=== PATIENT | female | born 1955 | race Caucasian/White ===

== ENCOUNTER 2020-12-30 14:24 | Emergency (ER) | payer OTHER ==
[~2020-12-30] VITALS: Ht 157.5 cm; Wt 68.0 kg
[2020-12-30] MEDS ORDERED: CLINDAMYCIN300 M1 PO (14:50)
[2020-12-30 14:57] VITALS: BP 162/65
== END 2020-12-30 14:59 | disposition home or self-care (01) | DRG 159 ==
LOC: ED 14:24
DX: K08.89 Other specified disorders of teeth and supporting structures (principal); I10 Essential (primary) hypertension

== ENCOUNTER 2021-12-09 09:00 | Emergency (ER) | payer MEDICARE, OTHER ==
[~2021-12-09] VITALS: Ht 157.5 cm; Wt 66.0 kg
[~2021-12-09 09:00] MED LIST: CLINDAMYCIN300 M1 PO
[2021-12-09 09:14] VITALS: BP 188/108
[2021-12-09] MEDS ORDERED: LISINOPRIL2.5 MG PO (09:18)
[2021-12-09] MEDS ORDERED: METOPROL TAR25 MG PO (09:18)
[2021-12-09] MEDS ORDERED: NORVASC2.5 M1 PO (09:18)
[2021-12-09] MEDS ORDERED: PROTONIX20 M1 PO (09:19)
[2021-12-09 11:56] LABS: HEMATOCRIT 50.3 % (37.0-47.0); IMMATURE GRANULOCYTES 0.2 % (0.0-5.0); MEAN CELL VOLUME 92.5 fL CALC (80.0-100.0); MEAN CORPUSCULAR HGB 31.3 pG CALC (26.0-32.0); MEAN CORPUSCULAR HGB CONC 33.8 g/dL CAL (32.0-36.0); NEUT# 6.1 thou/uL (2.00-7.15); RED BLOOD COUNT 5.44 mill/uL (4.20-5.60); RED CELL DISTRI WIDTH 12.9 % (11.5-15.5)
[2021-12-09 12:01] LABS: ALBUMIN 4.3 g/dL (3.2-5.0); ALKALINE PHOSPHATASE 164 u/l (38-126); ANION GAP 13 (6-22 (CALC)); BILIRUBIN, TOTAL 0.8 mg/dL (0.0-1.4); BUN 7 mg/dL (8-23); BUN/CREATININE RATIO 13 (12-20 (CALC)); CARBON DIOXIDE 22 mmol/l (22-30); CHLORIDE 104 mmol/l (95-108); CREATININE 0.5 mg/dL (0.5-1.0); GFR > 60 ML/MIN (>=60 (CALC)); GFR FOR AFR.AMER. > 60 ML/MIN (>=60 (CALC)); POTASSIUM 4.2 mmol/l (3.5-5.1); SGOT/AST 53 u/l (9-36); SODIUM 135 mmol/l (137-146)
[2021-12-09] MEDS ORDERED: ZPAK PO (14:02)
[2021-12-09] MEDS ORDERED: OMNI-PAC300 MG PO (14:02)
[2021-12-09] MEDS ORDERED: PREDNISONE20 MG PO (14:02)
== END 2021-12-09 15:33 | disposition short-term general hospital (02) ==
LOC: ED 09:00
PROVIDERS: Internal Medicine
DX: I21.4 Non-ST elevation (NSTEMI) myocardial infarction (principal); J18.9 Pneumonia, unspecified organism; I10 Essential (primary) hypertension; E78.00 Pure hypercholesterolemia, unspecified; I25.2 Old myocardial infarction; F17.210 Nicotine dependence, cigarettes, uncomplicated; Z95.5 Presence of coronary angioplasty implant and graft
CPT/HCPCS: Q9967

== ENCOUNTER 2022-04-14 17:52 | Observation (INO) | payer MEDICARE, OTHER ==
[~2022-04-14] VITALS: Ht 157.5 cm; Wt 60.0 kg
[2022-04-14] VITALS (71 sets, daily range): BP systolic 61–152; BP diastolic 31–91
[~2022-04-14 17:52] MED LIST changes: +EZETIMIBE10 MG PO; +LISINOPRIL2.5 MG PO; +METOPROL TAR25 MG PO; +NORVASC2.5 M1 PO; +OMNI-PAC300 MG PO; +PREDNISONE20 MG PO; +PROTONIX20 M1 PO; +ZPAK PO
[2022-04-14] MEDS ORDERED: LISINOPRIL10 MG PO (17:59)
[2022-04-14] MEDS ORDERED: ASPIRIN81 MG PO (17:59)
[2022-04-14 18:40] LABS: IMMATURE GRANULOCYTES 0.4 % (0.0-5.0); MEAN CELL VOLUME 89.6 fL CALC (80.0-100.0); MEAN CORPUSCULAR HGB 29.8 pG CALC (26.0-32.0); MEAN CORPUSCULAR HGB CONC 33.2 g/dL CAL (32.0-36.0); NEUT# 12.41 thou/uL (2.00-7.15); RED BLOOD COUNT 3.66 mill/uL (4.20-5.60); RED CELL DISTRI WIDTH 13.6 % (11.5-15.5)
[2022-04-14 18:42] LABS: HEMATOCRIT 32.8 % (37.0-47.0); HEMOGLOBIN 10.9 g/dl (12.0-16.0)
[2022-04-14 18:55] LABS: INTERNATIONAL NORMALIZED RATIO 1.2 RATIO (0.7-1.3); PROTHROMBIN TIME 11.8 SECONDS (9.0-12.5)
[2022-04-14 18:58] LABS: ALKALINE PHOSPHATASE 90 u/l (38-126); BILIRUBIN, TOTAL 0.3 mg/dL (0.0-1.4); BUN 14 mg/dL (8-23); BUN/CREATININE RATIO 20 (12-20 (CALC)); CHLORIDE 108 mmol/l (95-108); CREATININE 0.7 mg/dL (0.5-1.0); GFR FOR AFR.AMER. > 60 ML/MIN (>=60 (CALC)); GFR OTHER RACES > 60 ML/MIN (>=60 (CALC)); POTASSIUM 3.8 mmol/l (3.5-5.1); SGOT/AST 18 u/l (9-36); SODIUM 136 mmol/l (137-146)
[2022-04-14 19:17] LABS: ALBUMIN 2.9 g/dL (3.2-5.0); ANION GAP 11 (6-22 (CALC)); CARBON DIOXIDE 21 mmol/l (22-30); TOTAL PROTEIN 5.4 g/dL (6.3-8.2)
[2022-04-15] VITALS (18 sets, daily range): BP systolic 100–155; BP diastolic 53–68
[2022-04-15 05:22] LABS: IMMATURE GRANULOCYTES 0.2 % (0.0-5.0); MEAN CELL VOLUME 88.2 fL CALC (80.0-100.0); MEAN CORPUSCULAR HGB 30.5 pG CALC (26.0-32.0); MEAN CORPUSCULAR HGB CONC 34.6 g/dL CAL (32.0-36.0); NEUT# 9.14 thou/uL (2.00-7.15); RED BLOOD COUNT 4.56 mill/uL (4.20-5.60); RED CELL DISTRI WIDTH 14.4 % (11.5-15.5)
[2022-04-15 05:26] LABS: HEMATOCRIT 40.2 % (37.0-47.0); HEMOGLOBIN 13.9 g/dl (12.0-16.0)
[2022-04-15 05:34] LABS: ANION GAP 13 (6-22 (CALC)); BUN 16 mg/dL (8-23); BUN/CREATININE RATIO 22 (12-20 (CALC)); CARBON DIOXIDE 25 mmol/l (22-30); CHLORIDE 106 mmol/l (95-108); CREATININE 0.7 mg/dL (0.5-1.0); GFR FOR AFR.AMER. > 60 ML/MIN (>=60 (CALC)); GFR OTHER RACES > 60 ML/MIN (>=60 (CALC)); POTASSIUM 4.2 mmol/l (3.5-5.1); SODIUM 139 mmol/l (137-146)
[2022-04-15 10:09] LABS: HEMATOCRIT 37.4 % (37.0-47.0); HEMOGLOBIN 12.5 g/dl (12.0-16.0)
[2022-04-15 18:37] LABS: HEMATOCRIT 35.4 % (37.0-47.0)
[2022-04-16 04:26] VITALS: BP 162/78
[2022-04-16 06:26] LABS: HEMATOCRIT 31.5 % (37.0-47.0); IMMATURE GRANULOCYTES 0.1 % (0.0-5.0); MEAN CELL VOLUME 87.7 fL CALC (80.0-100.0); MEAN CORPUSCULAR HGB 30.6 pG CALC (26.0-32.0); MEAN CORPUSCULAR HGB CONC 34.9 g/dL CAL (32.0-36.0); NEUT# 7.88 thou/uL (2.00-7.15); RED BLOOD COUNT 3.59 mill/uL (4.20-5.60); RED CELL DISTRI WIDTH 13.9 % (11.5-15.5)
[2022-04-16 07:12] LABS: ALBUMIN 3.1 g/dL (3.2-5.0); ALKALINE PHOSPHATASE 94 u/l (38-126); ANION GAP 10 (6-22 (CALC)); BUN 8 mg/dL (8-23); BUN/CREATININE RATIO 17 (12-20 (CALC)); CARBON DIOXIDE 26 mmol/l (22-30); CHLORIDE 105 mmol/l (95-108); CREATININE 0.5 mg/dL (0.5-1.0); GFR FOR AFR.AMER. > 60 ML/MIN (>=60 (CALC)); GFR OTHER RACES > 60 ML/MIN (>=60 (CALC)); POTASSIUM 3.8 mmol/l (3.5-5.1); SGOT/AST 17 u/l (9-36); SODIUM 138 mmol/l (137-146); TOTAL PROTEIN 5.6 g/dL (6.3-8.2)
[2022-04-16 07:14] LABS: BILIRUBIN, TOTAL 0.6 mg/dL (0.0-1.4)
[2022-04-16 07:20] VITALS: BP 174/90
[2022-04-16 10:23] VITALS: BP 180/78
[2022-04-16] MEDS ORDERED: LORTAB 5/3255 MG PO (12:02)
[2022-04-16 13:07] VITALS: BP 175/70
== END 2022-04-16 14:12 | disposition home or self-care (01) ==
LOC: ED 17:52 → ED-I 23:23 → ED 23:34 → MS2 23:35
PROVIDERS: Family Medicine; Nurse Practitioner; ADMIT Internal Medicine; ATTEND Internal Medicine
PROC: 02HV33Z Insertion of Infusion Device into Superior Vena Cava, Percutaneous Approach (ICD-10-PCS; principal; 2022-04-14)
PROC: 30243N1 Transfusion of Nonautologous Red Blood Cells into Central Vein, Percutaneous Approach (ICD-10-PCS; 2022-04-14)
PROC: 30243N1 Transfusion of Nonautologous Red Blood Cells into Central Vein, Percutaneous Approach (ICD-10-PCS; 2022-04-14)
DX: L76.32 Postprocedural hematoma of skin and subcutaneous tissue following other procedure (principal); I95.9 Hypotension, unspecified; I10 Essential (primary) hypertension; J44.9 Chronic obstructive pulmonary disease, unspecified; E78.5 Hyperlipidemia, unspecified; K21.9 Gastro-esophageal reflux disease without esophagitis; F17.200 Nicotine dependence, unspecified, uncomplicated; I25.2 Old myocardial infarction; Y83.1 Surgical operation with implant of artificial internal device as the cause of abnormal reaction of the patient, or of later complication, without mention of misadventure at the time of the procedure; Z99.81 Dependence on supplemental oxygen; Z95.5 Presence of coronary angioplasty implant and graft; Z95.820 Peripheral vascular angioplasty status with implants and grafts; Z95.1 Presence of aortocoronary bypass graft; Z79.82 Long term (current) use of aspirin; Z20.822 Contact with and (suspected) exposure to COVID-19
CPT/HCPCS: P9016; Q9967

== ENCOUNTER 2022-08-28 12:00 | Emergency (ER) | payer MEDICARE, OTHER ==
[~2022-08-28] VITALS: Ht 157.5 cm; Wt 63.0 kg
[~2022-08-28 12:00] MED LIST changes: +ASPIRIN81 MG PO; +LISINOPRIL10 MG PO; +LORTAB 5/3255 MG PO
[2022-08-28] MEDS ORDERED: PLAVIX75 MG PO (12:26)
[2022-08-28 12:53] LABS: BASO% 0.7 % (0-3); IMMATURE GRANULOCYTES 0.4 % (0.0-5.0); LYMPH% 26.1 % (15-41); MEAN CELL VOLUME 89.9 fL CALC (80.0-100.0); MEAN CORPUSCULAR HGB 29.8 pG CALC (26.0-32.0); MEAN CORPUSCULAR HGB CONC 33.1 g/dL CAL (32.0-36.0); MONO% 6.8 % (2-13); NEUT# 4.73 thou/uL (2.00-7.15); RED BLOOD COUNT 5.14 mill/uL (4.20-5.60); RED CELL DISTRI WIDTH 13.5 % (11.5-15.5)
[2022-08-28 12:55] LABS: HEMATOCRIT 46.2 % (37.0-47.0); HEMOGLOBIN 15.3 g/dl (12.0-16.0)
[2022-08-28 13:05] LABS: ALKALINE PHOSPHATASE 116 u/l (38-126); ANION GAP 11 (6-22 (CALC)); BILIRUBIN, TOTAL 0.5 mg/dL (0.0-1.4); BUN 22 mg/dL (8-23); BUN/CREATININE RATIO 28 (12-20 (CALC)); CARBON DIOXIDE 28 mmol/l (22-30); CHLORIDE 104 mmol/l (95-108); CREATININE 0.8 mg/dL (0.5-1.0); GFR FOR AFR.AMER. > 60 ML/MIN (>=60 (CALC)); GFR OTHER RACES > 60 ML/MIN (>=60 (CALC)); LIPASE 100 u/l (23-300); POTASSIUM 4.4 mmol/l (3.5-5.1); SGOT/AST 27 u/l (9-36); SODIUM 139 mmol/l (137-146)
[2022-08-28 13:07] LABS: ALBUMIN 4.5 g/dL (3.2-5.0); TOTAL PROTEIN 8.1 g/dL (6.3-8.2)
[2022-08-28 13:47] LABS: URINE BILIRUBIN - DIPSTICK NEGATIVE (NEGATIVE); URINE BLOOD DIPSTICK NEGATIVE (NEGATIVE); URINE COLOR YELLOW; URINE GLUCOSE - DIPSTICK NEGATIVE (NEGATIVE); URINE KETONE TRACE mg/dL (NEGATIVE); URINE LEUK ESTERASE NEGATIVE (NEGATIVE); URINE PROTEIN - DIPSTICK NEGATIVE (NEG-TRACE); URINE SPECIFIC GRAVITY >=1.030; URINE UROBILINOGEN - DIPSTICK 0.2 E.U./dL (0.2)
[2022-08-28 13:50] LABS: URINE NITRITE - DIPSTICK NEGATIVE (Negative)
[2022-08-28 16:27] VITALS: BP 178/86
== END 2022-08-28 16:37 | disposition home or self-care (01) ==
LOC: ED 12:00
PROVIDERS: Family Medicine
DX: R10.11 Right upper quadrant pain (principal); I10 Essential (primary) hypertension; I25.2 Old myocardial infarction; E78.00 Pure hypercholesterolemia, unspecified; K21.9 Gastro-esophageal reflux disease without esophagitis; Z95.1 Presence of aortocoronary bypass graft; Z95.820 Peripheral vascular angioplasty status with implants and grafts